=== PATIENT | male | born 1960 | race African-American/Black ===

== ENCOUNTER 2019-08-26 10:45 | Emergency (ER) | payer MEDICAID, OTHER ==
[~2019-08-26] VITALS: Ht 167.6 cm; Wt 81.6 kg
[2019-08-26 11:00] VITALS: BP 143/109
[2019-08-26] MEDS ORDERED: TETRACAINE HCL 0.5% OPTH(EYE) SOLN 4ML EACHEYE ONE (11:15)
[2019-08-26] MEDS ORDERED: FLUORESCEIN SOD 1 MG TEST STRIP OP ONE (11:15)
== END 2019-08-26 11:57 | disposition home or self-care (01) ==
LOC: ER 10:45
DX: S05.02XA Injury of conjunctiva and corneal abrasion without foreign body, left eye, initial encounter (principal); S05.01XA Injury of conjunctiva and corneal abrasion without foreign body, right eye, initial encounter; H16.133 Photokeratitis, bilateral; F17.210 Nicotine dependence, cigarettes, uncomplicated; X58.XXXA Exposure to other specified factors, initial encounter; Y93.89 Activity, other specified; Y92.89 Other specified places as the place of occurrence of the external cause; Y99.8 Other external cause status